=== PATIENT | male | born 1975 | race Caucasian/White ===

== ENCOUNTER 2018-12-21 11:27 | Day surgery (SDC) | payer BC ==
[~2018-12-21] VITALS: Ht 175.3 cm; Wt 92.8 kg
[~2018-12-21 11:27] MED LIST: ALBU90OI INH; ASMANEX HFA13 GM INH; ATOR40TA PO; Amlodipine Besy10 MG PO; Imitrex100 MG PO; LOSA50 PO; MONT10T PO
--- NOTE | 2018-12-21 13:24 | NUR ---
12/21/18 1324 Karlee Thompson (Dahlia DUSILVAB GIVEN AT 1216. LIDOCAINE 4% GIVEN AT [address] MURRAY.
== END 2018-12-21 14:13 | disposition home or self-care (01) ==
LOC: ORSCSDS 11:27
DX: R10.13 Epigastric pain (principal); R10.9 Unspecified abdominal pain; K20.9 Esophagitis, unspecified; K29.80 Duodenitis without bleeding; D50.9 Iron deficiency anemia, unspecified; R19.7 Diarrhea, unspecified; G47.33 Obstructive sleep apnea (adult) (pediatric); I10 Essential (primary) hypertension; K92.1 Melena; R73.03 Prediabetes; E78.00 Pure hypercholesterolemia, unspecified; E66.9 Obesity, unspecified; Z68.30 Body mass index [BMI] 30.0-30.9, adult; Z79.899 Other long term (current) drug therapy
CPT/HCPCS: 88305; 88342; J2001; J2250; J2704; J7120

== ENCOUNTER → 2019-06-09 | Outpatient (CLI) | payer BC | END | disposition home or self-care (01) | LOC: LAB 08:00 → LAB SHORT 08:00 → EDSTATUS 05-30 12:25 → LAB FUT 05-30 12:25 | DX: D50.8 Other iron deficiency anemias (principal) | CPT/HCPCS: 83993 ==

== ENCOUNTER → 2019-08-13 | Outpatient (CLI) | payer BC | END | disposition home or self-care (01) | LOC: LAB SHORT 09:16 → LAB 09:16 → LAB FUT 08-07 08:25 | DX: R19.5 Other fecal abnormalities (principal) | CPT/HCPCS: 82656 ==

== ENCOUNTER 2019-08-15 09:30 | Day surgery (SDC) | payer BC ==
[~2019-08-15] VITALS: Ht 175.3 cm; Wt 97.7 kg
== END 2019-08-15 11:40 | disposition home or self-care (01) ==
LOC: ORSCSDS 09:30
PROVIDERS: Surgery
PROC: 0DBE8ZX Excision of Large Intestine, Via Natural or Artificial Opening Endoscopic, Diagnostic (ICD-10-PCS; principal; 2019-08-15 10:45)
DX: K62.5 Hemorrhage of anus and rectum (principal); R19.7 Diarrhea, unspecified; G47.33 Obstructive sleep apnea (adult) (pediatric); I10 Essential (primary) hypertension; J45.909 Unspecified asthma, uncomplicated; K76.0 Fatty (change of) liver, not elsewhere classified; E78.5 Hyperlipidemia, unspecified; E88.81 Metabolic syndrome and other insulin resistance; Z79.899 Other long term (current) drug therapy
CPT/HCPCS: 88305; J2704; J7120

== ENCOUNTER 2021-01-24 05:47 | Day surgery (SDC) | payer BC ==
[2021-01-24] MEDS ORDERED: Bentyl10 MG PO (10:11)
[2021-01-24] MEDS ORDERED: HYDCHL12.5 PO (10:11)
[2021-01-24] MEDS ORDERED: TADALAFIL5 M1 PO (10:12)
== END 2021-01-24 11:08 | disposition home or self-care (01) ==
LOC: ATC 05:47
DX: R89.1 Abnormal level of hormones in specimens from other organs, systems and tissues (principal); I10 Essential (primary) hypertension; J45.909 Unspecified asthma, uncomplicated; G47.33 Obstructive sleep apnea (adult) (pediatric); E78.5 Hyperlipidemia, unspecified; K58.9 Irritable bowel syndrome, unspecified; M72.2 Plantar fascial fibromatosis
CPT/HCPCS: 36415; 80400; 82533; 96372; J0834

== ENCOUNTER → 2024-01-14 | Outpatient (CLI) | payer BC ==
[~2024-01-14] MED LIST changes: +Bentyl10 MG PO; +HYDCHL12.5 PO; +TADALAFIL5 M1 PO
== END ==
LOC: LAB 17:42 → LAB SHORT 17:42
DX: K61.1 Rectal abscess (principal)
CPT/HCPCS: 87070; 87075; 87076; 87077; 87185; 87186; 87205

== ENCOUNTER → 2024-10-05 | Outpatient (CLI) | payer BC | LOC: LAB SHORT 13:31 → LAB 13:31 | DX: N30.00 Acute cystitis without hematuria (principal) | CPT/HCPCS: 87086 ==

== ENCOUNTER → 2024-10-25 | Outpatient (CLI) | payer BC | LOC: LAB 17:15 → LAB SHORT 17:15 | DX: N30.00 Acute cystitis without hematuria (principal) | CPT/HCPCS: 87086 ==